=== PATIENT | female | born 1970 | race Caucasian/White ===

== ENCOUNTER → 2018-11-07 | Outpatient (CLI) | payer BC ==
--- NOTE | 2018-11-07 15:59 | US ---
EXAMINATION TYPE: US pelvic complete DATE OF EXAM: 11/07/2018 COMPARISON: 06/02/2012 CLINICAL HISTORY: R10.2 PELVIC PAIN. Painful periods. TECHNIQUE: Transvaginal (TV) and Transabdominal (TA) . Transabdominal sonographic images of the pel vis were acquired. Transvaginal sonographic images were medically necessary to better assess the fol lowing anatomy: Uterus, ovaries. Date of LMP: 10/02/18 EXAM MEASUREMENTS: Uterus: 9.4 x 6.8 x 5.0 cm Endometrial Stripe: 0.7 cm Right Ovary: 7.8 x 5.5 x 5.3 cm Left Ovary: 2.9 x 2.8 x 2.8 cm 1. Uterus: Anteverted enlarged, myomatous., Multiple cervical cysts. 2. Endometrium: wnl 3. Right Ovary: septated cyst as measured above. 4. Left Ovary: with cyst = 1.8 x 1.8 x 1.6 cm 5. Bilateral Adnexa: wnl 6. Posterior cul-de-sac: wnl IMPRESSION: 1. Large cysts on the right ovary. Correlation with laboratory results is recommended. Ovarian carcin rea is not excluded. Follow-up is recommended.
== END | disposition home or self-care (01) ==
LOC: RADUSWWP 13:40
PROVIDERS: ATTEND Obstetrics & Gynecology
DX: N83.201 Unspecified ovarian cyst, right side (principal)
CPT/HCPCS: 76830; 76856

== ENCOUNTER → 2018-11-30 | Outpatient (CLI) | payer BC ==
--- NOTE | 2018-12-02 10:11 | MM ---
Reason for exam: screening (asymptomatic). History: Retro-pectoral saline implants, 1998. Physical Findings: A clinical breast exam by your physician is recommended on an annual basis and results should be correlated with mammographic findings. MG 3D Screen Mammo Imp/Cad Bilateral CC, MLO, and ID view(s) were taken. No prior studies available for comparison. There are scattered fibroglandular densities. Bilateral retropectoral silicone implants. No significant changes when compared with prior studies. ASSESSMENT: Negative, BI-RAD 1 RECOMMENDATION: Routine screening mammogram of both breasts in 1 year.
== END | disposition home or self-care (01) ==
LOC: RADMAMWWP 13:53
PROVIDERS: ATTEND Obstetrics & Gynecology
DX: Z12.31 Encounter for screening mammogram for malignant neoplasm of breast (principal); Z98.82 Breast implant status
CPT/HCPCS: 77063; 77067; 81503

== ENCOUNTER → 2019-01-12 | Outpatient (CLI) | payer BC ==
[2019-01-12 13:38] LABS: Basophils # (A) 0.1 k/uL (0-0.2); Basophils % (A) 1 %; Eosinophils # (A) 0.2 k/uL (0-0.7); Eosinophils % (A) 3 %; HCT 42.7 % (34.0-46.0); HGB 13.8 gm/dL (11.4-16.0); Lymphocytes # (A) 1.7 k/uL (1.0-4.8); Lymphocytes % (A) 22 %; MCH 27.7 pg (25.0-35.0); MCHC 32.3 g/dL (31.0-37.0); MCV 85.7 fL (80.0-100.0); Mean Platelet Volume 7.4; Monocytes # (A) 0.6 k/uL (0-1.0); Monocytes % (A) 7 %; Neutrophils # (A) 5.3 k/uL (1.3-7.7); Neutrophils % (A) 66 %; Platelet Count 302 k/uL (150-450); RBC 4.99 m/uL (3.80-5.40); RDW 13.1 % (11.5-15.5)
[2019-01-12 13:52] LABS: Anion Gap 8 mmol/L; Blood Urea Nitrogen 12 mg/dL (7-17); Calcium 9.1 mg/dL (8.4-10.2); Carbon Dioxide 25 mmol/L (22-30); Chloride 106 mmol/L (98-107); Glucose 88 mg/dL (74-99); Potassium 4.4 mmol/L (3.5-5.1); Sodium 139 mmol/L (137-145)
== END ==
LOC: LABPAT 12:21
PROVIDERS: ATTEND Obstetrics & Gynecology
DX: Z01.812 Encounter for preprocedural laboratory examination (principal)
CPT/HCPCS: 36415; 80048; 85025

== ENCOUNTER 2019-01-19 05:56 | Observation (INO) | payer BC ==
--- NOTE | 2019-01-18 16:20 | P.HPOB ---
History of Present Illness H&P Date: 01/18/19 Chief Complaint: Pelvic pain Sydney is a 40-year-old female who has been on nonsteroidal anti-inflammatories for pain that is progressively worsening. She is noted to have a 7 cm septated cyst on her ovary and as she continues to have pain she is scheduled for a robotic-assisted laparoscopic hysterectomy with RSO possible BSO possible total abdominal hysterectomy. Risks/benefits/alternatives were reviewed with the patient in detail including but were not limited to bleeding and infection/damage to bladder, bowel, vascular injuries, nerve damage, ureteral injuries. Thoroughly review of laparoscopic hysterectomy was done with the patient and all questions were answered for her prior to proceeding to the operating room. 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 An oval 1 test was done revealing limited risk for concurrent cancer. Past Medical History Past Medical History: Blood Disorder Additional Past Medical History / Comment(s): Hx occ anemia. Gestational Diabetes, GERD in last 2011. Ovarian cysts, menses painful. History of Any Multi-Drug Resistant Organisms: MRSA Date of last positivie culture/infection: 2013 MDRO Source:: neck Past Surgical History: Breast Surgery, Section, Tubal Ligation, Uterine Ablation Additional Past Surgical History / Comment(s): breast augmentation, tummy tuck. Past Anesthesia/Blood Transfusion Reactions: No Reported Reaction Smoking Status: Never smoker - Past Family History Mother Family Medical History: Cancer Additional Family Medical History / Comment(s): Cervical CA Medications and Allergies Home Medications Medication Instructions Recorded Confirmed Type Cariprazine HCl [Vraylar] 1.5 mg PO HS 01/13/19 01/13/19 History Dextroamphetamine/Amphetamine 20 mg PO BID 01/13/19 01/13/19 History [Adderall] Zolpidem [Ambien] 10 mg PO HS PRN 01/13/19 01/13/19 History Allergies Allergy/AdvReac Type Severity Reaction Status Date / Time sulfamethoxazole Allergy Rash/Hives Verified 01/13/19 15:42 [From Bactrim] trimethoprim [From Bactrim] Allergy Rash/Hives Verified 01/13/19 15:42 Exam Osteopathic Statement: *. No significant issues noted on an osteopathic structural exam other than those noted in the History and Physical/Consult. - OBG Physical Exam Breast: both: normal (no masses) Abdomen: bowel sounds normal, no diffuse tenderness, no bruit present, no guarding noted, no hepatomegaly, no splenomegaly, no mass Vulva: both: normal Vagina: normal moisture, no discharge Cervix: no lesion, no discharge Uterus: normal size, normal contour Adnexa: right: mass (Fullness in the right adnexa), left: normal Anus/Rectum: normal perianal skin, no rectal mass, no hemorrhoids, heme negative
[~2019-01-19 05:56] MED LIST: HYDROmorphone 0.5 MG/0.5 ML SYRINGE IVP PRN; MIDAZOLAM (PF) 2 MG/2 ML VIAL IV PRN; SCOPOLAMINE 1.5MG/72HR PATCH TRANSDERM ONE; ceFAZolin IN SWFI 2 GM/20 ML SYRINGE IVP ONE
[2019-01-19] MEDS: LACTATED RINGERS 1,000 ML IV SCH ×3 (06:37→07:35)
[2019-01-19] MEDS: LIDOCAINE 1% 20 ML VIAL (10MG/ML) FOR IV START INTRADERMA PRN ×2 (06:38→06:44)
[2019-01-19] MEDS: ONDANSETRON 4 MG/2 ML VIAL IVP ONE ×2 (06:53→10:53)
[2019-01-19] MEDS: DEXAMETHASONE SOD PHOSPHATE 10 MG/ML 1 ML VIAL IV ONE ×2 (06:53→10:53)
[2019-01-19] MEDS ORDERED: GLYCOPYRROLATE 0.2 MG/ML 2 ML VIAL ONE (07:31)
[2019-01-19] MEDS ORDERED: NEOSTIGMINE 1 MG/ML 10 ML VIAL ONE (07:31)
[2019-01-19] MEDS ORDERED: LIDOCAINE 1% INJ 10MG/ML (20 ML MDV) ONE (07:31)
[2019-01-19] MEDS ORDERED: PROPOFOL 10 MG/ML 20 ML VIAL IV ONE (07:31)
[2019-01-19] MEDS ORDERED: VECURONIUM 10 MG VIAL IV ONE (07:31)
[2019-01-19] MEDS ORDERED: MIDAZOLAM 2 MG/2 ML VIAL ONE (07:31)
[2019-01-19] MEDS ORDERED: BUPIVACAINE (PF) 0.5% 30 ML VIAL SQ ONE ×2 (07:47→08:15)
[2019-01-19] MEDS ORDERED: ONDANSETRON 4 MG/2 ML VIAL IVP PRN (09:38)
[2019-01-19] MEDS ORDERED: diphenhydrAMINE 50 MG/ML 1 ML VIAL IVP PRN (09:38)
[2019-01-19] MEDS ORDERED: SIMETHICONE 80 MG CHEWABLE PO PRN (09:38)
[2019-01-19] MEDS ORDERED: HYDROcodone/APAP 7.5-325MG 1 EACH TAB PO PRN (09:40)
--- NOTE | 2019-01-19 09:46 | P.OP ---
Date of Procedure: 01/19/19 Preoperative Diagnosis: Ovarian cyst, pelvic pain Postoperative Diagnosis: Same, incidental finding of adhesions Procedure(s) Performed: Robotic-assisted laparoscopic hysterectomy with right salpingo-to oophorectomy Anesthesia: YOU Surgeon: Aj Dueñas Community Development Director #1: Marycarmen Stevenson Estimated Blood Loss (ml): 10 IV fluids (ml): 500 Urine output (ml): 325 Pathology: other (Uterus, cervix, and right ovary) Condition: stable Disposition: floor Operative Findings: Adhesions all along the right abdominal wall of both omentum and bowel forcing us to move the lower right trocar inferiorly and medially Description of Procedure: Patient was taken to the operating suite where a general anesthetic was found be adequate. She was prepped and draped in normal sterile fashion and placed in dorsal lithotomy position. Initially a speculum was inserted into the vagina and the anterior lip of the cervix identified and grasped with single-tooth tenaculum. It was then sounded and a an 8 cm tip and 3 cm cup were used to place the Mey manipulator. Caicedo cath was then placed and gloves were changed. Attention turned to the abdominal portion procedure where 2 mL of quarter perce nt Marcaine was injected superior to the umbilicus and through 5 mm skin incision the port and sleeve were inserted under direct visualization with an optical trocar and sleeve. Once peritoneal placement was assured gas was left fully insufflate the abdomen and patient was then placed a very steep Trendelenburg position. 2 lateral ports were then placed inferior to the umbilicus due to her scarring and positioning of ports so they were approximate 2-3 cm superior to the ASIS and medial to the ASIS fourth port and sleeve was inserted through a 1 cm incision between the left lateral and medial port robot was then brought in and docked following placement of the robotic port for the camera. Observations pelvis were then noted. Uterus was then elevated and tipped the right-hand side and the left fallopian tube complex and utero-ovarian ligament were cauterized and transected and dissected to the round ligament. Round blade was then also cauterized transected and then sterilization of the left side of the vascularity was done. Cautery was then done to obtain hemostasis along the uterus by cauterizing the cardinal ligament and broad tissues to obtain closure of the uterine vascularity. Bladder flap was then identified and undermined and incised this opening was carried across face uterus and the bladder was bluntly dissected out of the operative field. Adhesions of the bladder and adjacent peritoneal tissues were then cleared from the left adnexal region. Ovary was then elevated and the infundibulopelvic ligament identified cauterized transected and moving superiorly across the tissues the right ovary was freed from the lateral wall attachments and then the broad ligament tissues were cauterized and transected. Once the round ligament tissue was cauterized transected and in a similar fashion this side of the uterus was developed. Once this was completed bladder flap fully was created and balloon and the Mey manipulator was blown up. Anterior colpotomy was then made. Following the cup around in a 3 and 60 fashion cheating head when necessary to maintain excellent hemostasis the cup was followed counterclockwise around cervix. Once completely free uterus and and ovary were placed in the vagina to maintain pneumoperitoneum. Once excellent hemostasis was obtained incidents were exchanged for a make suture cut and cardia grasper and using to OB lock suture the vaginal cuff was created. With no bleeding noted incidents removed else was irrigated and robot was then undocked and brought out of the operative field. While Dr. Stevenson close the skin incisions I did do a cystoscopy with excellent flow noted from both ureteral jets. Sponge, lap, needle counts were all correct 2 the remaining 8 mL of quarter percent Marcaine was injected around the incisions and patient was then taken to the recovery room in stable and satisfactory condition.
[2019-01-19] MEDS: KETOROLAC 30 MG/ML 1 ML VIAL IVP PRN ×2 (10:00→16:07)
[2019-01-19 10:52] VITALS: BMI 35.2
[2019-01-19] MEDS ORDERED: ZOLPIDEM 10 MG TAB PO PRN (18:49)
[2019-01-19] MEDS: ADDERAL PO SCH (20:50)
[2019-01-19] MEDS: SENNOSIDES-DOCUSATE SODIUM 1 EACH TAB PO SCH (20:57)
[2019-01-19] MEDS ORDERED: CARIPRAZINE HCL 1.5 MG PO SCH (21:00)
[2019-01-20] MEDS: LACTATED RINGERS 1,000 ML IV SCH (00:05)
[2019-01-20] MEDS: KETOROLAC 30 MG/ML 1 ML VIAL IVP PRN ×2 (00:06→05:54)
[2019-01-20 06:29] LABS: Basophils % (A) 0 %; Eosinophils # (A) 0.3 k/uL (0-0.7); Eosinophils % (A) 3 %; HCT 32.9 % (34.0-46.0); HGB 10.9 gm/dL (11.4-16.0); Lymphocytes % (A) 20 %; MCH 28.6 pg (25.0-35.0); MCV 86.6 fL (80.0-100.0); Mean Platelet Volume 7.6; Monocytes # (A) 0.6 k/uL (0-1.0); Monocytes % (A) 6 %; Neutrophils # (A) 6.9 k/uL (1.3-7.7); Neutrophils % (A) 69 %; Platelet Count 218 k/uL (150-450); RDW 13.1 % (11.5-15.5); WBC 9.9 k/uL (3.8-10.6)
[2019-01-20] MEDS: ADDERAL PO SCH (08:02)
[2019-01-20] MEDS: SENNOSIDES-DOCUSATE SODIUM 1 EACH TAB PO SCH (08:02)
--- NOTE | 2019-01-20 08:36 | P.DS ---
Providers Date of admission: 01/20/19 00:06 Expected date of discharge: 01/20/19 Attending physician: Aj Dueñas Primary care physician: [facility] Course: Patient is doing very well postop day 1. She is involuting, voiding, and she is tolerating her diet. She voices no complaints and is requesting discharge home. Vital signs are stable and afebrile. Heart regular, lungs clear, extremities are without pain. Abdomen soft nontender positive bowel sounds are noted. Incisions are intact. Assessment postop day 1. Plan discharged home follow up with me in 2 weeks. All discharge structural thoroughly reviewed and pres cription for [place] and Motrin are provided. She is stable for discharge this time. Patient Condition at Discharge: Good Plan - Discharge Summary Discharge Rx Participant: Yes New Discharge Prescriptions: New Ibuprofen [Motrin] 600 mg PO Q6HR PRN #30 tab PRN Reason: Pain HYDROcodone/APAP 5-325MG [[place] 5-325] 1 tab PO Q4HR PRN #20 tab PRN Reason: Pain No Action Zolpidem [Ambien] 10 mg PO HS PRN PRN Reason: Insomnia Dextroamphetamine/Amphetamine [Adderall] 20 mg PO BID Cariprazine HCl [Vraylar] 1.5 mg PO HS Discharge Medication List Cariprazine HCl [Vraylar] 1.5 mg PO HS 01/13/19 [History] Dextroamphetamine/Amphetamine [Adderall] 20 mg PO BID 01/13/19 [History] Zolpidem [Ambien] 10 mg PO HS PRN 01/13/19 [History] HYDROcodone/APAP 5-325MG [[place] 5-325] 1 tab PO Q4HR PRN #20 tab 01/20/19 [Rx] Ibuprofen [Motrin] 600 mg PO Q6HR PRN #30 tab 01/20/19 [Rx] Follow up Appointment(s)/Referral(s): Aj Dueñas DO [Doctor of Osteopathic Medicine] - 2 Weeks Activity/Diet/Wound Care/Special Instructions: Please give patient her home med that is in own med room upon discharge. No heavy lifting, limit stairs and driving, and complete pelvic rest. If any high temperatures, heavy bleeding, or severe pain call my office Discharge Disposition: HOME SELF-CARE
[2019-01-20 08:38] VITALS: BP 118/73; PULSE 87; RESP 16; TEMP 98.4
== END 2019-01-20 09:53 | disposition home or self-care (01) ==
LOC: OR 05:56 → 6PED 09:22 → OR 01-20 00:06 → 6PED 01-20 00:06
PROVIDERS: ADMIT Obstetrics & Gynecology; ATTEND Obstetrics & Gynecology
DX: N80.0 Endometriosis of uterus (principal); D27.0 Benign neoplasm of right ovary; N83.291 Other ovarian cyst, right side; K66.0 Peritoneal adhesions (postprocedural) (postinfection); N94.6 Dysmenorrhea, unspecified; F31.9 Bipolar disorder, unspecified; F98.8 Other specified behavioral and emotional disorders with onset usually occurring in childhood and adolescence; D64.9 Anemia, unspecified; Z79.1 Long term (current) use of non-steroidal anti-inflammatories (NSAID); Z79.899 Other long term (current) drug therapy; Z88.1 Allergy status to other antibiotic agents; Z98.51 Tubal ligation status; Z86.14 Personal history of Methicillin resistant Staphylococcus aureus infection; Z80.49 Family history of malignant neoplasm of other genital organs
CPT/HCPCS: 58552; S2900; 81025; 85025; 86850; 86900; 86901; 88309; 88341; 88342; 94760

== ENCOUNTER → 2021-11-18 | Outpatient (CLI) | payer BC ==
--- NOTE | 2021-11-19 11:05 | MM ---
Reason for exam: screening (asymptomatic). Last mammogram was performed 3 years ago. History: Retro-pectoral saline implants, 1998. Taking estrogen. Taking progesterone. Physical Findings: A clinical breast exam by your physician is recommended on an annual basis and results should be correlated with mammographic findings. MG 3D Screen Mammo Imp/Cad Bilateral CC, MLO, and ID view(s) were taken. Prior study comparison: November 30, 2018, bilateral MG 3d screen mammo imp/cad. There are scattered fibroglandular densities. Bilateral implants are intact. No significant changes when compared with prior studies. ASSESSMENT: Benign, BI-RAD 2 RECOMMENDATION: Routine screening mammogram of both breasts in 1 year.
== END | disposition home or self-care (01) ==
LOC: RADMAMWWP 10:55
PROVIDERS: ATTEND Family Medicine
DX: Z12.31 Encounter for screening mammogram for malignant neoplasm of breast (principal)
CPT/HCPCS: 77063; 77067

== ENCOUNTER → 2021-12-24 | Outpatient (CLI) | payer BC ==
--- NOTE | 2021-12-24 19:18 | CONS ---
CONSULTATION DATE OF SERVICE: 12/24/2021 51-year-old lady has been evaluated in [facility] for difficulties initiating sleep and possible obstructive sleep apnea-hypopnea syndrome. HISTORY OF PRESENT ILLNESS SLEEP-WAKE EVALUATION: SLEEP SCHEDULE: Patient sleep schedule usually from around 10:00 pm until 7:15 am during weekdays and on weekends her time in bed is various. FALLING ASLEEP: Takes for her sometimes more than 30 to 1 hour period of time to fall asleep. She has TV set in bedroom. DURING SLEEP: Usually sleeps on the side position. According to her family, she has extremely loud snoring and she has possibly several episodes of nocturia during the night. Possible positive history of panic attacks during the night. DURING THE DAY/SLEEP WAKE EVALUATION: In the morning, the patient does wake up tired, worries about her sleep. Has episodes of anxiety and claustrophobia. She does not take naps. [place] Sleepiness Scale is 1. No history of hypnagogic hallucinations, sleep paralysis or cataplexy. PAST MEDICAL HISTORY: Positive for acid reflux, gestation diabetes, anemia, bipolar disorder, ADD. PAST SURGICAL HISTORY: Uterus ablation, , hysterectomy. MEDICATIONS: Adderall 10 mg twice a day. Olanzapine 5 mg once a day. Estradiol 0.5 mg twice a day, clonazepam as needed, progesterone 200 mg once a day. Lamotrigine 50 mg twice a day. SOCIAL HISTORY: Negative for smoking. Alcohol consumption occasional. FAMILY HISTORY: Hypertension, heart problems, cancer and mental illness. REVIEW OF SYSTEMS: Difficulty initiating sleep, tiredness after awakenings in the morning. Extremely loud snoring. PHYSICAL EXAMINATION: GENERAL: lady without distress. BP 118/81, HR 72, RR 16, height 5 feet 5-3/4 inches, weight 243.6 pounds, body mass index 39.5, temperature 97.7, oxygen saturation at room air 99%. OROPHARYNX: Extremely low position of soft palate, Mallampati 3-4. NECK is 16 inches in circumference. Neck: Supple, no JVD. Thyroid is not palpable. LUNGS: Clear to percussion and to auscultation. Good air exchange. No wheezing or rhonchi. HEART: S1, S2 regular. No murmurs, gallops, or rubs. ABDOMEN: Obese. Soft and nontender. Bowel sounds are present. No organomegaly appreciated. EXTREMITIES: No clubbing or cyanosis. ALLIANCES CONSULTANT: Awake, alert, and oriented X3. Cranial nerves 2 to 7 intact. There is no fasciculation or atrophy. noted. No focal deficits observed. IMPRESSION: 1. Extremely loud snoring, extremely low position of soft palate, Mallampati 4, wide neck, 16 inches in circumference, awakenings from sleep with nocturia, feeling tiredness in the morning after sleep, obstructive sleep apnea-hypopnea syndrome. 2. Difficulties initiating sleep, psychophysiological insomnia. 3. History of attention-deficit disorder, on treatment with Adderall 10 mg twice a day. 4. Acid reflux. 5. History of gestational diabetes. 6. History of anemia. 7. History of bipolar disorder. 8. Status post uterus ablation. 9. Status post . 10.Status post hysterectomy. PLAN: 1. I discussed with the patient psychological techniques for treatment of psychophysiological insomnia including stimulus control, paradoxical intention, worry time, no watching clock. 2. Polysomnography for evaluation of patient's breathing during sleep. 3. CPAP/BiPAP titration if sleep study confirms obstructive sleep apnea-hypopnea syndrome. 4. Preferable position during sleep on the side. 5. No driving if patient feels any sleepiness. 6. I will see patient for follow up visit to explain results of testing and following plan. Thank you very much for allowing me to participate in management of your patient. Sincerely, Jose Anguiano MD, PhD, FAASM Diplomat of [employer] Sleep Medicine Board of [employer] Supervisor of [facility] [place] MMODL / IJN: [id number] /
== END ==
LOC: SLEEP 11:50
PROVIDERS: ATTEND Internal Medicine
DX: G47.33 Obstructive sleep apnea (adult) (pediatric) (principal); F51.04 Psychophysiologic insomnia; Z86.59 Personal history of other mental and behavioral disorders; K21.9 Gastro-esophageal reflux disease without esophagitis; F31.9 Bipolar disorder, unspecified; Z98.890 Other specified postprocedural states; Z87.59 Personal history of other complications of pregnancy, childbirth and the puerperium; Z90.710 Acquired absence of both cervix and uterus; Z86.2 Personal history of diseases of the blood and blood-forming organs and certain disorders involving the immune mechanism; Z88.2 Allergy status to sulfonamides
CPT/HCPCS: 99211